=== PATIENT | female | born 1940 | race Hispanic/Latino ===

== ENCOUNTER 2017-08-25 10:21 | Emergency (ER) | payer MEDICARE | END 2017-08-25 11:07 | disposition home or self-care (01) | LOC: EDH 10:21 | DX: I10 Essential (primary) hypertension (principal); E78.00 Pure hypercholesterolemia, unspecified; Z96.649 Presence of unspecified artificial hip joint | CPT/HCPCS: 99281 ==

== ENCOUNTER → 2023-04-27 | Outpatient (CLI) | payer OTHER, MEDICARE ==
[~2023-04-27] MED LIST: IOHEXOL 350 MG/ML 100ML INFUS..BTL IV ONE
== END | disposition home or self-care (01) ==
LOC: RAH 08:34
PROVIDERS: ATTEND Internal Medicine
DX: I25.10 Atherosclerotic heart disease of native coronary artery without angina pectoris (principal); R93.1 Abnormal findings on diagnostic imaging of heart and coronary circulation; I51.7 Cardiomegaly; M47.815 Spondylosis without myelopathy or radiculopathy, thoracolumbar region
CPT/HCPCS: 75574; Q9967